=== PATIENT | female | born 1960 | race Hispanic/Latino ===

== ENCOUNTER → 2017-10-14 | Outpatient (CLI) | payer OTHER, SELFPAY ==
--- NOTE | 2017-10-14 14:00 | Diagnostic Imaging Report ---
PROCEDURE:ABDOMINAL ULTRASOUND COMPARISON:[facility], US, US ABDOMEN COMPLETE, 12/31/2015, 10:17. INDICATIONS:Abdominal Pain FINDINGS: Exam limited by overlying bowel gas and patient's body habitus Liver: 12.9 cm. Increased hepatic parenchymal echogenicity. No focal mass. Main portal vein: 0.9 cm. Hepatopetal flow. Gallbladder: No stones, sludge, wall thickening, or pericholecystic fluid. Common Bile Duct: 0.5 cm. No echogenic filling defect. Sonographic Henriquez's sign: Negative Right kidney: 11.8 cm. No solid or cystic mass, echogenic calculi, or hydronephrosis. Normal parenchymal echogenicity. Left kidney: 9.6 cm. No solid or cystic mass, echogenic calculi, or hydronephrosis. Normal parenchymal echogenicity. Spleen: 10.3 cm. Pancreas: Mostly obscured by overlying bowel gas. Inferior vena cava: Partly obscured by overlying bowel gas.. Aorta: Proximal portion is unremarkable. Mid and distal portions are partly obscured by overlying bowel gas.. Ascites: None. CONCLUSION: 1. Increased hepatic parenchymal echogenicity, consistent with fatty infiltration. No focal lesions. Jose C Chiang M.D. Dictated by: Jose C Chiang M.D. on 10/14/2017 at 14:00 Electronically approved by: Jose C Chiang M.D. on 10/14/2017 at 14:00
== END ==
LOC: US 11:48
PROVIDERS: ATTEND Internal Medicine
DX: R10.9 Unspecified abdominal pain (principal); K76.0 Fatty (change of) liver, not elsewhere classified
CPT/HCPCS: 76700